=== PATIENT | female | born 1960 | race Caucasian/White ===

== ENCOUNTER 2017-02-04 10:29 | Outpatient (CLI) | payer OTHER ==
[2017-02-04 11:30] LABS: #Basophils 0.2 thou/uL (0.0-0.2); #Eosinphils 0.8 thou/uL (0.0-0.7); #Lymphocytes 5.6 thou/uL (1.20-3.40); #Monocytes 0.8 thou/uL (0.11-0.59); #Neutrophils 6.9 thou/uL (1.40-6.50); %Basophils 1.5 % (0.0-1.0); %Eosinophils 5.4 % (0.0-10.0); %Lymphocytes 39.1 % (21.0-51.0); %Monocytes 5.7 % (0.0-10.0); %Neutrophils 48.4 % (42.0-75.0); Hemoglobin 14.8 g/dL (12.0-16.0); Mean Corpuscular HGB CONC 34.4 g/dL (32.0-36.0); Mean Corpuscular Hemoglobin 32.3 pg (27.0-31.0); Mean Corpuscular Volume 93.8 fl (81.0-99.0); Mean Platelet Volume 8.5 fL (7.4-10.4); Platelet Count 284 thou/uL (130-400); RBC Distribution Width 11.9 % (11.5-14.5); Red Blood Cell (RBC) Count 4.59 mill/uL (4.20-5.40); White Blood Cell (WBC) Count 14.3 thou/uL (4.8-10.8)
[2017-02-04 11:41] LABS: ALT (SGPT) 16 U/L (0-55); AST (SGOT) 11 U/L (5-34); Albumin 3.8 g/dL (3.5-5.0); Alkaline Phosphatase 119 U/L (40-150); Anion Gap 17 mmol/L (10-20); BUN (Urea Nitrogen) 22 mg/dL (9.8-20.1); Bilirubin, Total 0.3 mg/dL (0.2-1.2); Calc. Creatinine Clearance 0 mL/min (70-130); Calcium 9.3 mg/dL (7.8-10.44); Carbon Dioxide 24 mmol/L (22-29); Cardiac Risk 4.7 (Less than 4.5); Chloride 103 mmol/L (98-107); Cholesterol 177 mg/dL (< 200 Desired); Estimated GFR-MDRD 49; Globulin 2.7 g/dL (2.4-3.5); Glucose 210 mg/dL (70-105); HDL Cholesterol 38 mg/dL (>60 Neg Risk); Potassium 4.4 mmol/L (3.5-5.1); Protein, Total 6.5 g/dL (6.0-8.3); Sodium 140 mmol/L (136-145); Triglycerides 532 mg/dL (Less than 150)
[2017-02-04 12:50] LABS: Hemoglobin A1c 11.8 % (4.0-6.0)
[2017-02-04 18:22] LABS: Creatinine, Urine 238.82 mg/dL (47-110); Microalbumin Urine 2.2 mg/dL (0.5-50.0); Microalbumin/Creat Ratio 9.2 mg/g (Less than 30)
== END 2017-02-04 10:30 ==
LOC: HPCALD 10:29
PROVIDERS: ATTEND Family Medicine
DX: E11.65 Type 2 diabetes mellitus with hyperglycemia (principal)
CPT/HCPCS: 36415; 80053; 80061; 82043; 83036; 84443; 85025